=== PATIENT | female | born 1980 ===

== ENCOUNTER 2016-12-19 05:01 | Inpatient (IN) | payer BC ==
[~2016-12-19] VITALS: Ht 170.2 cm; Wt 99.5 kg
[2016-12-19] VITALS (21 sets, daily range): BP systolic 93–134; BP diastolic 45–85; PULSE 60–97; TEMP 96–98.3
[~2016-12-19 05:01] MED LIST: MOTRIN 800800 MG/TAB PO; PERCOCET 325 MG1 TA2 PO; PRENATAL1 TA1 PO
[2016-12-19] MEDS ORDERED: PRENATAL MVI (05:59)
[2016-12-19 06:16] LABS: BASO % 0.2 % (0.0-2.0); EOS # 0.1 (0.0-0.7); EOS % 0.4 % (0-4.0); GRAN % 74.6 % (42.2-75.2); LYMPH # 2.2 (1.2-3.4); LYMPH % 17.9 % (20.0-51.0); MEAN CELL VOLUME 91 fl (80.0-100.0); MEAN CORPUSCULAR HGB CONC 35 g/dl (33.0-37.0); MEAN PLATELET VOLUME 10.4 fl (7.4-10.4); MONO # 0.7 (0.1-0.6); MONO % 5.6 % (1.7-9.3); PLATELET COUNT 244 K/mm3 (130-400); REDCELL DISTRIBUTION WIDTH-CV 13.4 % (11.5-14.5); WHITE BLOOD COUNT 12.1 K/mm3 (4.8-10.8)
[2016-12-19 06:19] LABS: HEMATOCRIT 33.6 % (37.0-47.0); HEMOGLOBIN 11.8 g/dl (12.5-16.0); MEAN CORPUSCULAR HEMOGLOBIN 32 pg (27.0-31.0)
[2016-12-20 07:10] VITALS: BP 108/70; PULSE 67; TEMP 98.2
[2016-12-20 07:13] LABS: HEMOGLOBIN 10.3 g/dl (12.5-16.0)
[2016-12-20] MEDS ORDERED: PERCOCET 325 MG1 TA2 PO (08:57)
[2016-12-20] MEDS ORDERED: IBU600 MG PO (08:57)
[2016-12-20 17:00] VITALS: BP 107/63; PULSE 81; TEMP 97.8
[2016-12-20 21:15] VITALS: BP 131/70; PULSE 87; TEMP 97.9
[2016-12-21 07:10] VITALS: BP 123/64; PULSE 79; TEMP 97.6
[2016-12-21] MEDS ORDERED: IBU600 MG PO (09:19)
== END 2016-12-21 11:20 | disposition home or self-care (01) | DRG 765 ==
LOC: LDRO 05:01 → LDR 05:35 → OB 05:35
PROVIDERS: Obstetrics & Gynecology
PROC: 10D00Z1 Extraction of Products of Conception, Low, Open Approach (ICD-10-PCS; principal; 2016-12-19)
DX: O34.211 Maternal care for low transverse scar from previous cesarean delivery (principal); O36.0130 Maternal care for anti-D [Rh] antibodies, third trimester, not applicable or unspecified; N85.8 Other specified noninflammatory disorders of uterus; Z3A.39 39 weeks gestation of pregnancy; Z37.0 Single live birth
CPT/HCPCS: J0690; J1885; J2175; J2270; J2370; J2405; J2590; J2790; J7120